=== PATIENT | female | born 1995 | race Caucasian/White ===

== ENCOUNTER 2019-01-01 14:27 | Emergency (ER) | payer SELFPAY ==
[2019-01-01 15:00] VITALS: BP 114/72
--- NOTE | 2019-01-01 15:04 | UC ---
Eye Complaint HPI - HPI Summary HPI Summary: 23 year old female with no PMH presents with right eye drainage, redness x 24 hours. Patient also has hoarseness, sore throat x 1-2 days. 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 no fever, chills. no FB sensation, no decrease in vision. no L eye symptoms. R eye crusted over this AM. Denies ear, sinus pain/ pressure - History of Current Complaint Chief Complaint: UCRespiratory Stated Complaint: LOST VOICE,RT EYE COMPLAINT Time Seen by Provider: 01/01/19 15:04 Hx Obtained From: Patient Hx Last Menstrual Period: 12/03/18; nexplanon ?: No Onset/Duration: Sudden Onset, Lasting Days - since last night Timing: Constant Severity Initially: Mild Severity Currently: Mild Pain Intensity: 0 Pain Scale Used: 0-10 Numeric Associated Signs And Symptoms: Positive: Drainage (Clear), Drainage (Purulent). Negative: Vision Impairment Right, Vision Impairment Left, Fever, Swelling - Allergies/Home Medications Allergies/Adverse Reactions: Allergies Allergy/AdvReac Type Severity Reaction Status Date / Time amoxicillin Allergy Hives Verified 01/01/19 14:55 Penicillins Allergy Hives Verified 01/01/19 14:55 PMH/Surg Hx/FS Hx/Imm Hx Previously Healthy: Yes - Surgical History Surgical History: Yes Surgery Procedure, Year, and Place: HEART ABLATION - Family History Known Family History: Positive: Non-Contributory - Social History Occupation: Employed Full-time Alcohol Use: None Substance Use Type: None Smoking Status (MU): Never Smoked Tobacco - Immunization History Vaccination Up to Date: Yes Review of Systems All Other Systems Reviewed And Are Negative: Yes Constitutional: Negative: Fever, Chills, Fatigue Eyes: Positive: Drainage, Eye Redness. Negative: Blurred Vision, Diplopia, Photophobia ENT: Positive: Negative Respiratory: Positive: Negative Cardiovascular: Positive: Negative Musculoskeletal: Positive: Negative Neurological: Positive: Negative. Negative: Headache Is Patient Immunocompromised?: No Physical Exam Triage Information Reviewed: Yes Appearance: Well-Appearing, No Pain Distress, Well-Nourished Vital Signs: Initial Vital Signs Temp 97.8 F 01/01/19 14:55 Pulse 68 01/01/19 14:55 Resp 16 01/01/19 14:55 BP 114/72 01/01/19 14:55 Pulse Ox 99 01/01/19 14:55 Vital Signs Reviewed: Yes Eyes: Positive: Conjunctiva Inflamed, Discharge - clear, watery drainage noted. , Other: - EMOI ENT: Positive: Pharynx normal, TMs normal, Uvula midline. Negative: TM dull, Tonsillar swelling, Tonsillar exudate, Sinus tenderness Neck: Positive: Supple, Nontender, No Lymphadenopathy Skin Exam: Normal Eye Complaint Course/Dx - Course Course Of Treatment: COnjunctivitis: - GOod hygiene as described - Work note given - Eye drops every 4 hours while awake until symptom free x 24 hours - Motrin /tylenol as needed for pain - REturn with decreased vision, increased pain, decreased eye movement - Differential Dx/Diagnosis Differential Diagnosis/HQI/PQRI: Conjunctivitis, Periorbital Cellulitis, Orbital Cellulitis, Uveitis Provider Diagnosis: Conjunctivitis, right eye Discharge ED - Sign-Out/Discharge Documenting (check all that apply): Patient Departure All imaging exams completed and their final reports reviewed: No Studies - Discharge Plan Condition: Good Disposition: HOME Prescriptions: Polymyx/Trimethoprim OPTH* [Polytrim OPHTH*] 1 drop RIGHT EYE Q4HR #1 btl Patient Education Materials: Conjunctivitis (ED) Forms: *Work Release Referrals: No Primary Care Phys,[facility]OPCP [Primary Care Provider] - [facility] [Outside] [facility] [Provider Group] Additional Instructions: - GOod hygiene as described - Work note given - Eye drops every 4 hours while awake until symptom free x 24 hours - Motrin /tylenol as needed for pain - REturn with decreased vision, increased pain, decreased eye movement - Billing Disposition and Condition Condition: GOOD Disposition: Home
== END 2019-01-01 15:25 | disposition home or self-care (01) ==
LOC: UCCORT 14:27
DX: H10.31 Unspecified acute conjunctivitis, right eye (principal); J02.9 Acute pharyngitis, unspecified; Z88.0 Allergy status to penicillin
CPT/HCPCS: 99202; G0463

== ENCOUNTER 2019-01-11 09:58 | Emergency (ER) | payer SELFPAY ==
[2019-01-11 10:24] VITALS: BP 115/79
--- NOTE | 2019-01-11 10:46 | UC ---
Respiratory Complaint HPI - HPI Summary HPI Summary: 23 yo female ill x 2 weeks no fever nasal congestion/sinus pressure and pain as well as cough which is productive at times - History of Current Complaint Chief Complaint: UCGeneralIllness Stated Complaint: COUGH,CONGESTION,ST,RUNNY NOSE Time Seen by Provider: 01/11/19 10:29 Hx Obtained From: Patient Hx Last Menstrual Period: 01/04/19 Onset/Duration: Gradual Onset Timing: Constant Severity Initially: Mild Severity Currently: Moderate Pain Intensity: 0 Pain Scale Used: 0-10 Numeric Associated Signs And Symptoms: Positive: Nasal Congestion, Sinus Discomfort - Allergies/Home Medications Allergies/Adverse Reactions: Allergies Allergy/AdvReac Type Severity Reaction Status Date / Time amoxicillin Allergy Hives Verified 01/11/19 10:25 Penicillins Allergy Hives Verified 01/11/19 10:25 Home Medications: Home Medications Etonogestrel [Nexplanon] 68 mg IMPLANT SEE INSTRUCTIONS 01/11/19 [History Confirmed 01/11/19] PMH/Surg Hx/FS Hx/Imm Hx Previously Healthy: Yes - Surgical History Surgical History: Yes Surgery Procedure, Year, and Place: HEART ABLATION - Family History Known Family History: Positive: Hypertension, Diabetes, Non-Contributory Negative: Cardiac Disease - Social History Alcohol Use: None Substance Use Type: None Smoking Status (MU): Never Smoked Tobacco - Immunization History Vaccination Up to Date: Yes Review of Systems All Other Systems Reviewed And Are Negative: Yes Constitutional: Positive: Negative Skin: Positive: Negative Eyes: Positive: Negative ENT: Positive: Nasal Discharge, Sinus Congestion, Sinus Pain/Tenderness Respiratory: Positive: Cough Cardiovascular: Positive: Negative Gastrointestinal: Positive: Negative Genitourinary: Positive: Negative Motor: Positive: Negative Neurovascular: Positive: Negative Musculoskeletal: Positive: Negative Neurological: Positive: Negative Psychological: Positive: Negative Physical Exam Triage Information Reviewed: Yes Appearance: Well-Appearing, No Pain Distress, Well-Nourished Vital Signs: Initial Vital Signs Temp 98.2 F 01/11/19 10:20 Pulse 79 01/11/19 10:20 Resp 16 01/11/19 10:20 BP 115/79 01/11/19 10:20 Pulse Ox 100 01/11/19 10:20 Vital Signs Reviewed: Yes Eyes: Positive: Conjunctiva Clear ENT: Positive: Hearing grossly normal, Pharyngeal erythema, TMs normal, Sinus tenderness - mild. Negative: Nasal congestion, Nasal drainage, Trismus, Muffled voice, Hoarse voice Dental Exam: Normal Neck: Positive: Supple, Nontender, No Lymphadenopathy Respiratory: Positive: Lungs clear, Normal breath sounds, No respiratory distress, No accessory muscle use, Other: - bronchospastic cough Cardiovascular: Positive: RRR Abdominal Exam: Normal Bowel Sounds: Positive: Present Musculoskeletal: Positive: ROM Intact, No Edema Neurological: Positive: Alert, Muscle Tone Normal Psychological Exam: Normal Skin Exam: Normal Respiratory Course/Dx - Differential Dx/Diagnosis Provider Diagnosis: Bronchitis Discharge ED - Sign-Out/Discharge Documenting (check all that apply): Patient Departure All imaging exams completed and their final reports reviewed: No Studies - Discharge Plan Condition: Stable Disposition: HOME Prescriptions: Azithromycin TAB* [Zithromax TAB*] 250 mg PO DAILY #6 tab Patient Education Materials: Acute Bronchitis (ED) Referrals: Javier Baker PA [Primary Care Provider] - 7 Days (if not better) Additional Instructions: rest fluids robitussinDM or mucinex - Billing Disposition and Condition Condition: STABLE Disposition: Home
== END 2019-01-11 10:47 | disposition home or self-care (01) ==
LOC: UCCORT 09:58
DX: J40 Bronchitis, not specified as acute or chronic (principal); J34.89 Other specified disorders of nose and nasal sinuses; Z88.0 Allergy status to penicillin
CPT/HCPCS: 99212; G0463